=== PATIENT | male | born 1945 | race Caucasian/White ===

== ENCOUNTER 2019-07-25 15:15 | Emergency (ER) | payer MEDICARE, OTHER ==
--- NOTE | 2019-07-25 15:53 | EDM.PDOC ---
ED HPI GENERAL MEDICAL PROBLEM - General Chief Complaint: Head Injury Stated Complaint: FELL Time Seen by Provider: 07/25/19 15:18 Source of Information: Reports: Patient, Old Records, Other (Current medical record from [facility]) History Limitations: Reports: No Limitations, Other (Poor Historian) - History of Present Illness INITIAL COMMENTS - FREE TEXT/NARRATIVE: Presents via EMS reporting a fall. The patient states that he and friend had just entered a local restaurant and were being escorted to their table when he suddenly fell over on his face striking his forehead on the floor. He denies any prodromal symptoms including dizziness, lightheadedness, chest pain, headache or any other symptom. Denies tripping or loss of balance due to hazards. He does report that about a month ago he was briefly hospitalized for BPPV but has been asymptomatic in the interim. Aside from the local pain above his left thigh he denies all symptoms on admission. The medical records from his primary provider indicates a history of hypertension, dyslipidemia, diabetes, gout, BPH, anxiety, GERD, morbid obesity. Medication list updated. head Pain Score (Numeric/FACES): 8 - Related Data Allergies Allergy/AdvReac Type Severity Reaction Status Date / Time codeine Allergy Other Verified 07/25/19 15:23 prednisolone Allergy Tachycardia Verified 07/25/19 17:19 prednisone Allergy Tachycardia Verified 07/25/19 17:19 ED ROS GENERAL - Review of Systems Review Of Systems: Comprehensive ROS is negative, except as noted in HPI. Constitutional: Reports: No Symptoms Musculoskeletal: Reports: Other (The patient later complained of left rib tenderness which he points to over the left anterior axillary line at the 5th- 6th intercostal space.) ED EXAM, HEAD INJURY - Physical Exam Exam: See Below Exam Limited By: No Limitations General Appearance: Alert, No Apparent Distress Head: Atraumatic, Normocephalic Nexus Criteria: No: Posterior, Midline Cervical Tenderness, Evidence of Intoxication, Altered Level of Consciousness, Focal Neurological Deficit, Painful Distraction Injuries Eyes: Bilateral Eye: PERRL Ears: Normal External Exam Nose: Normal Inspection Throat/Mouth: Normal Inspection Neck: Non-Tender, Full Range of Motion, Normal Alignment, Normal Inspection Respiratory: No Respiratory Distress, Lungs Clear, Normal Breath Sounds, No Accessory Muscle Use, Other (Tenderness left anterior axillary line 5th-6th intercostal space. No overlying crepitus or lesion, swelling, ecchymosis,) Cardiovascular: Normal Peripheral Pulses, Regular Rate, Rhythm, No Murmur GI/Abdominal Exam: Normal Bowel Sounds, Soft, Non-Tender Extremities: Normal Inspection, Normal Range of Motion, Other (Baseline slowly walks with a cane for balance) Neurologic: furniture finisher II-XII nml As Tested, No Motor/Sensory Deficits, Alert, Normal Mood/Affect, Oriented x 3 Skin: Normal Color, Warm/Dry - Dusty Coma Score Best Eye Response ([place]): (4) Open Spontaneously Best Verbal Response ([place]): (5) Oriented Best Motor Response (Dusty): (6) Obeys Commands Course - Vital Signs Last Recorded V/S: Last Vital Signs Temp 35.1 C L 07/25/19 15:20 Pulse 59 L 07/25/19 15:20 Resp 18 07/25/19 15:20 BP 203/77 H 07/25/19 15:20 Pulse Ox 94 L 07/25/19 15:20 - Orders/Labs/Meds Orders: Active Orders 24 hr Category Date Time Status EKG 12 Lead [EKG Documentation Completion] [RC] STAT Care 07/25/19 15:30 Active Incentive Spirometry [RT Incentive Spirometry] [RC] Care 07/25/19 17:48 Ordered ASDIRECTED GLUCOSE,POC [POC] Stat Lab 07/25/19 15:50 Ordered Labs: Laboratory Tests 07/25/19 07/25/19 Range/Units 15:44 15:44 WBC 9.14 (4.0-11.0) K/uL RBC 5.48 (4.50-5.90) M/uL Hgb 15.6 (13.0-17.0) g/dL Hct 46.3 (38.0-50.0) % MCV 84.5 (80.0-98.0) fL MCH 28.5 (27.0-32.0) pg MCHC 33.7 (31.0-37.0) g/dL RDW Std Deviation 41.0 (28.0-62.0) fl RDW Coeff of Gwen 14 (11.0-15.0) % Plt Count 228 (150-400) K/uL MPV 10.00 (7.40-12.00) fL Neut % (Auto) 68.3 (48.0-80.0) % Lymph % (Auto) 21.2 (16.0-40.0) % [place] % (Auto) 8.3 (0.0-15.0) % Eos % (Auto) 2.0 (0.0-7.0) % Baso % (Auto) 0.2 (0.0-1.5) % Neut # (Auto) 6.2 H (1.4-5.7) K/uL Lymph # (Auto) 1.9 (0.6-2.4) K/uL [place] # (Auto) 0.8 (0.0-0.8) K/uL Eos # (Auto) 0.2 (0.0-0.7) K/uL Baso # (Auto) 0.0 (0.0-0.1) K/uL Nucleated RBC % 0.0 /100WBC Nucleated RBCs # 0 K/uL Sodium 139 (136-148) mmol/L Potassium 3.1 L (3.5-5.1) mmol/L Chloride 100 (98-107) mmol/L Carbon Dioxide 30.5 (21.0-32.0) mmol/L BUN 15 (7.0-18.0) mg/dL Creatinine 1.1 (0.8-1.3) mg/dL Est Cr Clr Drug Dosing 52.03 mL/min Estimated GFR (MDRD) > 60.0 ml/min Glucose 230 H (74-106) mg/dL Calcium 8.6 (8.5-10.1) mg/dL Total Bilirubin 0.6 (0.2-1.0) mg/dL AST 18 (15-37) IU/L ALT 20 (14-63) IU/L Alkaline Phosphatase 76 (46-116) U/L Troponin I < 0.050 (0.000-0.056) ng/mL Total Protein 7.1 (6.4-8.2) g/dL Albumin 3.1 L (3.4-5.0) g/dL Globulin 4.0 (2.6-4.0) g/dL Albumin/Globulin Ratio 0.8 L (0.9-1.6) - Re-Assessments/Exams Free Text/Narrative Re-Assessment/Exam: 07/25/19 16:36 The patient later complained of left rib tenderness which he points to over the left anterior axillary line at the 5th-6th intercostal space. Free Text/Narrative Re-Assessment/Exam: 07/25/19 17:52 The patient took his regularly scheduled medications which he had with him. Departure - Departure Time of Disposition: 17:52 Disposition: Home, Self-Care 01 Condition: Good Clinical Impression: Laceration - Discharge Information Forms: ED Department Discharge Additional Instructions: 1. Your Potassium is a little low. Please make an appointment with [facility] your primary provider in [place]. 2. The steri strips will fall off on their own. Laceration for signs of infection: Redness, swelling, pussy drainage report promptly. 3. Deep breathe with your incentive spirometer 10 times every hour while awake to prevent pneumonia. 4. Wear your rib belt to splint cough and deep breathing. 5. Tylenol arthritis which is 650 mg every 8 hours as needed for pain. Sepsis Event Note - Evaluation Sepsis Screening Result: No Definite Risk - Focused Exam Vital Signs: Vital Signs Temp Pulse Resp BP Pulse Ox 07/25/19 15:20 35.1 C L 59 L 18 203/77 H 94 L Date Exam was Performed: 07/25/19 Time Exam was Performed: 17:51 - My Orders Last 24 Hours: My Active Orders 07/25/19 15:50 GLUCOSE,POC [POC] Stat 07/25/19 17:48 Incentive Spirometry [RT Incentive Spirometry] [RC] ASDIRECTED - Assessment/Plan Last 24 Hours: My Active Orders 07/25/19 15:50 GLUCOSE,POC [POC] Stat 07/25/19 17:48 Incentive Spirometry [RT Incentive Spirometry] [RC] ASDIRECTED
[2019-07-25 16:25] LABS: BLOOD UREA NITROGEN,BUN 15 mg/dL (7.0-18.0); CARBON DIOXIDE,CO2 30.5 mmol/L (21.0-32.0); CHLORIDE,CL 100 mmol/L (98-107); GLUCOSE RANDOM 230 mg/dL (74-106); POTASSIUM,K 3.1 mmol/L (3.5-5.1); SODIUM,NA 139 mmol/L (136-148)
--- NOTE | 2019-07-25 17:15 | CT ---
CT cervical spine Technique: Multiple axial sections through the cervical spine were obtained from above C1 inferiorly to the T3 level. Reconstructed coronal and sagittal images were reviewed. Comparison: No prior cervical spine imaging is available. Findings: Severe disc space narrowing is noted at C5-6. Disc fusion is seen at C6-7. Mild disc space narrowing is noted throughout other levels of the cervical and upper thoracic spine. Spondylolisthesis is noted at C3-4 measuring approximately 3.5 mm. This spondylolisthesis is due to degenerative apophyseal change. Other degenerative apophyseal change is scattered throughout the cervical spine. Minimal right-sided neural foraminal stenosis is noted at C3-4. Other neural foramina are patent. Mild central canal stenosis is noted at C5-6. No fracture is appreciated. Scattered anterior endplate osteophytes are seen. Impression: 1. Degenerative change. 2. Nothing acute is identified on CT study of the cervical spine. Diagnostic code #3 This report was dictated in MDT
--- NOTE | 2019-07-25 17:19 | CT ---
Head CT Technique: Multiple axial sections through the brain were obtained. Intravenous contrast was not utilized. Comparison: No prior intracranial imaging is available. Findings: Ventricles along with basal cisterns and sulci over the convexities are moderately prominent. No abnormal parenchymal densities are seen. No evidence of intracranial hemorrhage. No midline shift or mass-effect is seen. Soft tissue swelling is noted within the scalp of the left forehead. Bone window settings were reviewed. No acute paranasal sinus findings are seen within the visualized sinuses. Visualized mastoid sinuses show nothing acute. No acute calvarial finding is appreciated. Impression: 1. Soft tissue swelling within the scalp of the left forehead. 2. Generalized atrophy is seen. 3. No acute intracranial abnormality is appreciated. Diagnostic code #2 This report was dictated in MDT
--- NOTE | 2019-07-25 17:25 | CT ---
CT chest Technique: Multiple axial sections were obtained from above the lung apices inferiorly through the lung bases. Intravenous contrast was not utilized. Findings: Aorta shows no aneurysm. Mild coronary artery calcification is seen. No pericardial thickening is seen. Mediastinum shows no hematoma. Rim calcified lesion is noted within the upper pole of the left kidney measuring 3.9 cm in size. This is believed to be benign. Cyst is also noted within the left kidney measuring 2.1 cm. No additional abnormality is appreciated within the upper abdomen. Lung window settings shows a small nodule within the right upper lung measuring about 5 mm in size. 2nd nodule is noted within the right upper lung measuring about 5 mm in size. Calcification is noted within the pericardial fat on the left side measuring 1.3 cm which is felt to be incidental. Slight basilar fibrosis is felt to be present. No acute parenchymal change is seen within either lung. No discrete rib fracture is appreciated. Thoracic spine shows scattered disc space narrowing and endplate spurring. Vacuum disc phenomena seen within the mid to lower thoracic spine. No acute compression deformities or abnormal subluxation is seen. Impression: 1. Two 5 mm nodules within the right upper lung. These show no calcifications. Follow-up noncontrast CT study could be considered in 9 months to confirm stability. This follow-up study would occur in March,. 2. Other findings as described above which are felt to be benign and of no acute significance. 3. Nothing acute is appreciated. Diagnostic code #9 This report was dictated in MDT
== END 2019-07-25 18:37 | disposition home or self-care (01) ==
LOC: MW.ED 15:15
DX: S01.81XA Laceration without foreign body of other part of head, initial encounter (principal); W19.XXXA Unspecified fall, initial encounter; W22.8XXA Striking against or struck by other objects, initial encounter; E11.9 Type 2 diabetes mellitus without complications; R94.31 Abnormal electrocardiogram [ECG] [EKG]
CPT/HCPCS: 36415; 70450; 70450-26; 71250; 71250-26; 72125; 72125-26; 80053; 82962; 84484; 85025; 93005; 99284; 99284-25